=== PATIENT | female | born 1955 | race Caucasian/White ===

== ENCOUNTER 2019-10-24 10:41 | Emergency (ER) | payer BC ==
--- NOTE | 2019-10-24 10:57 | Emergency Department Record ---
History of Present Illness - General Chief Complaint: Rapid heartbeat Stated Complaint: FAST HEARTBEAT Time Seen by Provider: 10/24/19 10:43 Source: Patient, Family Mode of Arrival: Ambulatory Limitations: No limitations - History of Present Illness Initial Comments: 64 yo female presents with a feeling of heart racing. The patient woke up in her normal state of health. She ate breakfast and had coffee. She was sitting, reading a book around 9am. While sitting she felt like her heart rate was increased. She put on her IWatch and her rate was about 120. She took her blood pressure and it was elevated to 190 systolic. Over the next ten minutes the symptoms slowly resolved. She is not having any current symptoms. She denies any chest pain. No sweating. No shortness of breath. No back or abdominal pain. For several months she has had a vague dizzy feeling with an occipital pressure. This is unchanged. She has had a feeling of dry sore throat for a couple of months as well. She denies any current or recent exertion related symptoms. She states she has been told she has a possible heart murmur in the past but she has not had an echo. She denies any known CAD. She is not a smoker. She does have a history of elevated cholesterol. The patient's PCP is Roxanne Knowles MD Complaint: Palpitations, Rapid heart beat Onset/Timin -: Hour(s) Context: Occurred during rest Associated Symptoms: Denies other symptoms - Related Data Home Medications Medication Instructions Recorded Confirmed Last Taken No Home Med [NO HOME MEDS] 10/24/19 10/24/19 Unknown Allergies Allergy/AdvReac Type Severity Reaction Status Date / Time No Known Allergies Allergy no Unverified 10/24/19 10:50 allergies Travel/Exposure Screening - Travel/Exposure Within Last 30 Days Have you traveled within the last 30 days?: Yes Additional Travel Detail:: [place] - Additondc Travel/Exposure Details Have you been exposed to anyone with a communicable illness?: No - Travel Symptoms Symptom Screening: None Review of Systems Constitutional: Denies: Chills, Fever, Malaise, Weakness Eyes: Denies: Eye discharge ENT: Reports: Throat pain. Denies: Congestion Respiratory: Denies: Cough, Dyspnea, Hemoptysis, Stridor, Wheezes Cardiovascular: Reports: Palpitations. Denies: Chest pain, Edema, Syncope Endocrine: Denies: Fatigue, Polydipsia, Polyuria Gastrointestinal: Denies: Abdominal pain, Diarrhea, Nausea, Vomiting Genitourinary: Denies: Dysuria, Urgency Musculoskeletal: Denies: Arthralgia, Back pain, Myalgia, Neck pain Skin: Denies: Bruising, Change in color, Rash Neurological: Reports: Headache, Vertigo. Denies: Weakness Psychiatric: Denies: Anxiety Hematological/Lymphatic: Denies: Easy bleeding, Easy bruising Past Medical History - SOCIAL HISTORY Smoking Status: Never smoker Alcohol Use: None Drug Use: None - RESPIRATORY Hx Respiratory Disorders: No - CARDIOVASCULAR Hx Cardio Disorders: No - NEURO Hx Neuro Disorders: No - GI Hx GI Disorders: No - Hx Genitourinary Disorders: No - ENDOCRINE Hx Endocrine Disorders: No - MUSCULOSKELETAL Hx Musculoskeletal Disorders: No - PSYCH Hx Psych Problems: No - HEMATOLOGY/ONCOLOGY Hx Hematology/Oncology Disorders: No Family Medical History Any Significant Family History?: Yes Hx Cancer: Brother/Sister Physical Exam - General General Appearance: Alert, Oriented x3, Cooperative, No acute distress Limitations: No limitations - Head Head exam: Atraumatic, Normal inspection - Eye Eye exam: Normal appearance, PERRL. negative: Conjunctival injection, Scleral icterus - ENT ENT exam: Normal exam, Mucous membranes moist Ear exam: Normal external inspection Nasal Exam: Normal inspection Mouth exam: Normal external inspection - Neck Neck exam: Normal inspection. negative: Lymphadenopathy, Tenderness, Thyromegaly - Respiratory Respiratory exam: Normal lung sounds bilaterally. negative: Respiratory distress, Rhonchi, Stridor, Wheezes - Cardiovascular Cardiovascular Exam: Regular rate, Normal rhythm, Normal heart sounds, Systolic murmur (soft best over the aortic. very mild.) Peripheral Pulses: 2+: Radial (R), Radial (L) - GI/Abdominal GI/Abdominal exam: Soft. negative: Tenderness - Rectal Rectal exam: Deferred - exam: Deferred - Extremities Extremities exam: Normal inspection. negative: Calf tenderness, Pedal edema - Back Back exam: Denies: CVA tenderness (R), CVA tenderness (L) - Neurological Neurological exam: Alert, Normal gait, Oriented X3. negative: Abnormal gait, Altered - Psychiatric Psychiatric exam: Normal affect, Normal mood. negative: Agitated, Anxious - Skin Skin exam: Dry, Intact, Normal color, Warm Course - Reevaluation(s) Reevaluation #1: 10/24/19 10:52 EKG #1: 10:46 Rate: 85 Rhythm: sinus Mylo: normal Intervals: normal ST segments: anterior lateral t wave changes Prior: No old 10/24/19 11:43 The labs results were reviewed There are no acute significant abnormalities of the CBC There are no acute significant abnormalities of the CMP except glucose of 177 The TSH and magnesium were normal 10/24/19 11:44 The patient has been resting comfortably without racing heart rate sensation 10/24/19 11:46 The CXR was reviewed. No acute abnormality. 10/24/19 11:46 The troponin is normal 10/24/19 11:52 BNP is normal No arrhythmia on the monitor. The patient is asymptomatic We discussed observation in the ED on the monitor, serial enzymes, and likely outpatient referral for cardiology. 10/24/19 12:49 NSR, no ectopy or tachycardia on the monitor. HR is 68 10/24/19 15:15 The repeat troponin is negative The patient has been referred to the [facility] Cardiology clinic. We discussed signs and symptoms for immediate return if the symptoms return Medical Decision Making - Lab Data Result diagrams: 10/24/19 10:55 10/24/19 10:55 Disposition Disposition: Discharge Clinical Impression: Palpitations Disposition: Home, Self-Care Condition: (1) Good Instructions: Heart Palpitations (ED) Additional Instructions: Review this ER visit and the tests performed with your family doctor Call your doctor for the next available follow up appointment Return to the ER for a recheck immediately if worse, any new concerns or questions Referrals: Snehal Phelan M.D. [MEDICAL DOCTOR] - [facility] [Provider Group] Forms: Patient Portal Access Time of Disposition: 15:16 Quality - Quality Measures Quality Measures: N/A - Blood Pressure Screening Does Patient Have Any of the Following: Active Dx of HTN Blood Pressure Classification: Hypertensive Reading Systolic Measurement: 172 Diastolic Measurement: 95 Screening for High Blood Pressure: Patient Exclusion, Hx of HTN [[id number]]
[2019-10-24 11:04] LABS: ABSOLUTE NEUTROPHIL COUNT 4.13; BASO % 0.2 % (0-6); EOS % 2.7 % (0-6); GRAN % 66.2 % (47-80); HEMATOCRIT 40.4 % (35.0-47.0); HEMOGLOBIN 13.7 gm/dl (11.6-16.0); LYMPH % 23.2 % (16-45); MEAN CELL VOLUME 79.8 fl (81-97); MEAN CORPUSCULAR HEMOGLOBIN 27.1 pg (27-33); MEAN CORPUSCULAR HGB CONC 33.9 g/dl (32-36); MONO % 7.7 % (0-9); PLATELET COUNT 259 K/uL (130-400); RED BLOOD COUNT 5.06 M/uL (3.80-5.40); RED CELL DISTRIBUTION WIDTH 14.9 % (11.5-14.5); WHITE BLOOD COUNT W/O DIFF 6.2 K/uL (4.2-12.2)
[2019-10-24 11:17] LABS: BLOOD UREA NITROGEN 19 mg/dL (8-23); CREATININE 0.7 mg/dL (0.5-0.9); EST GLOMERULAR FILTRATION RATE > 60 mL/min
[2019-10-24 11:18] LABS: TOTAL PROTEIN 7.1 g/dL (6.6-8.7)
[2019-10-24 11:20] LABS: GLUCOSE,RANDOM 177 mg/dL (74-109)
[2019-10-24 11:23] LABS: ALB/GLOB RATIO 1.7 (1.1-1.8); ALBUMIN 4.5 g/dL (4.0-5.0); ALKALINE PHOSPHATASE 85 U/L (35-104); ALT/SGPT 32 U/L (<33); AST/SGOT 19 U/L (10.0-35.0)
[2019-10-24 11:46] LABS: NTpro B-NATRIURETIC PEPTIDE 13.99 pg/mL (<125)
--- NOTE | 2019-10-24 12:03 | RADIOLOGY REPORT ---
EXAMINATION: Two View Chest Radiographs EXAM DATE: 10/24/2019 11:50 AM TECHNIQUE: Frontal and lateral views INDICATION: palpitations COMPARISON: None ENCOUNTER: Not applicable FINDINGS: Lungs are clear. Cardiac silhouette is unremarkable. Mild spurring in the thoracic spine. IMPRESSION: No acute disease. Dictated by: Zach Shaikh MD on 10/24/2019 12:00 PM. .
== END 2019-10-24 15:34 | disposition home or self-care (01) ==
LOC: ER 10:41
DX: R00.2 Palpitations (principal); R42 Dizziness and giddiness; I10 Essential (primary) hypertension
CPT/HCPCS: 71046; 80053; 83735; 83880; 84443; 84484; 85025; 93005; 93010; 99284